=== PATIENT | female | born 1970 | race Asian ===

== ENCOUNTER 2017-02-08 23:12 | Emergency (ER) | payer OTHER ==
[~2017-02-08] VITALS: Ht 154.9 cm; Wt 59.0 kg
[2017-02-09 01:45] VITALS: BP 115/65
== END 2017-02-09 01:45 | disposition home or self-care (01) ==
LOC: ED 23:12
DX: S61.411A Laceration without foreign body of right hand, initial encounter (principal); W26.8XXA Contact with other sharp object(s), not elsewhere classified, initial encounter; Y93.89 Activity, other specified; Y99.8 Other external cause status; Y92.89 Other specified places as the place of occurrence of the external cause
CPT/HCPCS: 90715; J2001